=== PATIENT | female | born 1980 | race Caucasian/White ===

== ENCOUNTER 2016-09-20 23:45 | Emergency (ER) | payer OTHER ==
[~2016-09-20] VITALS: Ht 160 cm; Wt 97.5 kg
[~2016-09-20 23:45] MED LIST: DOCUSATE SODIU100 MG PO; GLUCOPHAGE500 MG; HYDROMORPHONE HC2 MG PO; METFORMIN ER500 MG PO; MILK OF MAGNESI30 ML PO; MOTRIN 800MG T800 MG PO; MOTRIN800 MG PO; MYLICON IN40 MG/0.6 PO; PERCOCET 325 MG1 TA2 PO; SERTRALINE HYD100 MG PO
--- NOTE | 2016-09-21 00:14 | ED GI/GU/ABDOMINAL COMPLAINT ---
History of Present Illness General Chief Complaint: Abdominal Pain/Flank Pain Stated Complaint: LT FLANK PAIN X'S FEW DAY'S PER PT Source: patient Exam Limitations: no limitations Allergies Coded Allergies: penfluridol (Intermediate, RASH 09/21/16) Reconcile Medications No Known Home Medications Triage Note: TRIAGE: PATIENT REPORTS +L SIDE AND L FLANK PAIN, DENIES URINARY DIFFICULTIES. DENIES N/V/D. PATIENT INCREASED W/ LAYING ON L SIDE AND W/ PALPATION. PATIENT REPORTS ONSET FEW DAYS AGO, INCREASED AND MORE CONSTANT TONIGHT; DULL ACHING 11/20. Triage Nurses Notes Reviewed? yes ? N Is pt currently ? No HPI: This patient is a 36 year old female with a past medical history including diabetes who presented to the emergency department today for evaluation of left side pain for a few weeks. She reported that about 1 weeks ago she went to her primary care physician who did a urine sample which was normal. The pain increased over the last day. It is located in her left side, is nonradiating, dull, and a 7 out of 10. No palliative factors. Palpation of the are makes it worse. No fevers, chills, chest pain, difficulty breathing, nausea, vomiting, diarrhea, constipation, urinary burning, urgency frequency, or blood in the urine. (PABLO GUTIERRES,TEJAL) Vital Signs & Intake/Output Vital Signs & Intake/Output Vital Signs Date Time Temp Pulse Resp B/P B/P Pulse O2 O2 Flow FiO2 Mean Ox Delivery Rate 09/21 0244 98 Room Air 09/21 0243 98.6 82 18 158/86 98 Room Air 09/20 2357 97.1 95 18 163/91 98 Room Air ED Intake and Output 09/21 0000 09/20 1200 Intake Total Output Total Balance Patient 215 lb Weight Weight Reported by Patient Measurement Method Past History Travel History Traveled to [place] past 21 day No Medical History Any Pertinent Medical History? see below for history Neurological: NONE EENT: NONE Cardiovascular: PALPATATIONS Respiratory: NONE Gastrointestinal: NONE Hepatic: NONE Renal: NONE Musculoskeletal: NONE Psychiatric: NONE Endocrine: diabetes Blood Disorders: NONE Cancer(s): NONE CERTIFIED FRAUD EXAMINER/Reproductive: endometriosis, SOLID MASS ON OVERY 3 spontaneous vaginal deliveries History of MRSA: No History of VRE: No History of CDIFF: No Surgical History Surgical History: OVARIAN Psychosocial History Who do you live with Spouse Services at Home None What is your primary language British Tobacco Use: Never used Family History Hx Contributory? No (TEJAL SHAH PA-C) Review of Systems Review of Systems Constitutional: Reports: no symptoms. EENTM: Reports: no symptoms. Respiratory: Reports: no symptoms. Cardiovascular: Reports: no symptoms. GI: Reports: no symptoms. Genitourinary: Reports: no symptoms. Musculoskeletal: Reports: see HPI. Skin: Reports: no symptoms. Neurological/Psychological: Reports: no symptoms. All Other Systems: Reviewed and Negative (TEJAL SHAH PA-C) Physical Exam Physical Exam Gastrointestinal: normal bowel sounds, soft, non-tender, no organomegaly, no rebound or guarding. no mcburney's point tenderness. negative muphy's sign. negative rovsing sign. nondistended. no masses or hernias appreciated Comments: General: Well-developed, well-nourished person in no acute distress HEENT: Head normocephalic, moist mucous membranes Neck: Supple Back: Normal gait. NO midline tenderness. No CVA tenderness Respiatory: NO respiratory distress. Speaking in full sentences Neuro: A&Ox3. Cranial nerves grossy intact Psych: Normal mood and affect Core Measures ACS in differential dx? Yes Severe Sepsis Present: No Septic Shock Present: No (TEJAL SHAH PA-C) Progress Differential Diagnosis: AAA, AMI, appendicitis, biliary colic, bowel obstruction , colon cancer, cholecystitis, diverticulitis, ectopic , endometritis, gastritis, hepatitis, ischemic bowel, inflamm bowel dis, intrauterine , kidney stone, ovarian cyst, ovarian torsion, pancreatitis, PID/cervicitis, PUD/ GERD, perforated viscous, threatened AB, UTI/pyelo, muscle strain Radiology Impression: abd/pelvc ct.... hysterectomy noted.... full report below. Initial ED EKG: none Hand-Off Endorsed To: IRMA BECKETT,RAVINDER Reese Endorsed Time: 99 Pending: CT, labs (TEJAL SHAH PA-C) Plan of Care: Orders Procedure Date/time Status URINE 09/21 5 Complete URINALYSIS 09/21 5 Complete LIPASE 09/21 5 Complete HIGH SENSITIVITY CRP 09/21 5 Complete DIRECT BILIRUBIN 09/21 5 Complete COMPREHENSIVE METABOLIC PANEL 09/21 5 Complete CBC WITHOUT DIFFERENTIAL 09/21 5 Complete AMYLASE 05/11 0006 Complete Laboratory Tests 09/21/16 0020: Urine Color STRAW, Urine Clarity CLEAR, Urine pH 6.0, Ur Specific [place] 1.015, Urine Protein NEG, Urine Ketones NEG, Urine Nitrite NEG, Urine Bilirubin NEG, Urine Urobilinogen 0.2, Ur Leukocyte Esterase NEG, Ur Microscopic SEDIMENT EXAMINED, Urine RBC RARE, Ur Epithelial Cells MOD H, Urine Bacteria RARE H, Urine Hemoglobin TRACE-LYSED, Urine Glucose NEG, Urine Test NEGATIVE 09/21/16 0018: Anion Gap 13, Estimated GFR > 60, BUN/Creatinine Ratio 26.0 H, Glucose 118 H, Calcium 9.4, Total Bilirubin 0.4, Direct Bilirubin 0.3, AST 22, ALT 37, Alkaline Phosphatase 60, C-React Prot High Sens 8.9 H, Total Protein 7.5, Albumin 4.5, Globulin 3.0, Albumin/Globulin Ratio 1.5, Amylase 62, Lipase 129, CBC w Diff NO MAN DIFF REQ, RBC 4.28, MCV 82.2, MCH 27.9, RDW 13.2, MPV 7.9, Gran % 57.8, Lymphocytes % 35.4, Monocytes % 4.7, Eosinophils % 1.5, Basophils % 0.6, Absolute Granulocytes 5.3, Absolute Lymphocytes 3.2, Absolute Monocytes 0.4, Absolute Eosinophils 0.1, Absolute Basophils 0.1, PUBS MCHC 34.0 Diagnostic Imaging: Viewed by Me: CT Scan. Discussed w/RAD: CT Scan. Radiology Impression: abd/pelvc ct.... hysterectomy noted.... full report below. Comments: PATIENT: NIXON FORMAN PRESENT AGE: 36 PATIENT ACCOUNT NO: [id number] : 79 LOCATION: [facility] ORDERING PHYSICIAN: TEJAL SHAH PA-C SERVICE DATE: 09/21/16 EXAM TYPE: CAT - CT ABD & PELVIS W/O IV CONTRAS EXAMINATION: CT ABDOMEN AND PELVIS WITHOUT CONTRAST CLINICAL INFORMATION: Left-sided pain. COMPARISON: None TECHNIQUE: Multidetector volumetric imaging was performed from the superior aspect of the liver through the pubic symphysis. Sagittal and coronal reformatted images were obtained on the technologist's workstation. DLP: 465 mGy-cm FINDINGS: LUNG BASES: The visualized lung bases are unremarkable. LIVER, GALLBLADDER, AND BILIARY TREE: The liver is normal in size, shape, and attenuation. No focal hepatic lesion or biliary ductal dilatation is present. Cholecystectomy. PANCREAS: Unremarkable. SPLEEN: Unremarkable. ADRENAL GLANDS: Unremarkable. KIDNEYS AND URETERS: The kidneys are normal in size, shape, and attenuation. No hydronephrosis, hydroureter, or calculi seen. No perinephric stranding. BLADDER: Unremarkable. GASTROINTESTINAL TRACT: The stomach and small bowel are unremarkable. No dilated loops of bowel or evidence of obstruction. Normal appendix. No colonic wall thickening or inflammatory change. No free air or free fluid. ABDOMINAL WALL: No significant hernia is appreciated. LYMPH NODES: Normal. VASCULAR: Unremarkable. PELVIC VISCERA: There is a heterogeneous appearing mass in the region of the right adnexa. This likely represents a heterogeneous adnexal lesion, measuring 6.3 x 5.5 cm. The uterus is not seen and likely absent. No left adnexal mass. Alternatively, if the uterus has not been removed, this could be a heterogeneous uterus. OSSEOUS STRUCTURES: Unremarkable. IMPRESSION: 1. Heterogeneous lesion in the right adnexal region, likely of ovarian origin. Correlate for history of hysterectomy, as the uterus is otherwise not seen and if not previously removed, this could be a uterine process. No left adnexal mass. Regardless, this should be further evaluated. Ultrasound may be helpful for further delineation. 2. No hydronephrosis or nephrolithiasis. No acute inflammatory changes. DICTATED BY: SORAYA MAYS MD DATE/TIME DICTATED:09/21/16221 SUPERVISOR DRY CLEANING:SACHI DATE/TIME TRANSCRIBED:09/21/16221 CONFIDENTIAL, DO NOT COPY WITHOUT APPROPRIATE AUTHORIZATION. <Electronically signed in Other Vendor System> SIGNED BY: SORAYA MAYS MD 09/21 0231 (IRMA BECKETT,RAVINDER Reese) Departure Departure Disposition: HOME OR SELF CARE Condition: Stable Referrals: GAYLE BECKETT,CHONG Ang (PCP/Family) Additional Instructions: please follow-up with your primary care physician. over the counter tylenol or ibuprofen for pain and inflammation. return for any worsening symptoms or concerns. Departure Forms: Customer Survey General Discharge Information Prescriptions: Current Visit Scripts No Known Home Medications (PABLO GUTIERRES,TEJAL) Departure Clinical Impression Primary Impression: Muscle strain Secondary Impressions: Abdominal pain PA/MACHINIST Co-Sign Statement Statement: ED Attending supervision documentation- x[] I saw and evaluated the patient. I have also reviewed all the pertinent lab results and diagnostic results. I agree with the findings and the plan of care as documented in the PA's/MACHINIST's documentation. to my evaluation, mild left sided abdominal tenderness to palpation... no rebound. no guarding... ct scan abd/pelvis reveals unusual right ovary. Pt is aware of this from prior studies... pt referred to senior windows engineer for follow up. she is otherwise well. [] I have reviewed the ED Record and agree with the PA's/MACHINIST's documentation. [] Additions or exceptions (if any) to the PAs/MACHINIST's note and plan are summarized below: [] (IRMA BECKETT,RAVINDER Reese)
[2016-09-21 00:24] LABS: ABSOLUTE BASOPHIL COUNT 0.1 /CUMM (0.0-0.2); ABSOLUTE EOSINOPHIL COUNT 0.1 /CUMM (0.0-0.7); ABSOLUTE GRANULOCYTE CT 5.3 /CUMM (1.4-6.5); ABSOLUTE LYMPH COUNT 3.2 /CUMM (1.2-3.4); ABSOLUTE MONOCYTE COUNT 0.4 /CUMM (0.10-0.60); BASOPHIL % 0.6 % (0.0-2.0); EOSINOPHIL % 1.5 % (0-5); GRANULOCYTE % 57.8 % (42.2-75.2); HEMATOCRIT 35.2 % (37-47); MEAN CORPUSCULAR HGB 27.9 PG (27.0-31.0); MEAN CORPUSCULAR VOLUME 82.2 FL (81.0-99.0); MEAN PLATELET VOLUME 7.9 FL (7.4-10.4); PLATELET COUNT 302 /CUMM (130-400); RBC DISTRIBUTION WIDTH 13.2 % (11.5-14.5); RED BLOOD CELL CT 4.28 /CUMM (4.20-5.40); WHITE BLOOD CELL COUNT 9.1 /CUMM (4.8-10.8)
--- NOTE | 2016-09-21 02:31 | CT SCAN REPORT ---
EXAMINATION: CT ABDOMEN AND PELVIS WITHOUT CONTRAST CLINICAL INFORMATION: Left-sided pain. COMPARISON: None TECHNIQUE: Multidetector volumetric imaging was performed from the superior aspect of the liver through the pubic symphysis. Sagittal and coronal reformatted images were obtained on the technologist's workstation. DLP: 465 mGy-cm FINDINGS: LUNG BASES: The visualized lung bases are unremarkable. LIVER, GALLBLADDER, AND BILIARY TREE: The liver is normal in size, shape, and attenuation. No focal hepatic lesion or biliary ductal dilatation is present. Cholecystectomy. PANCREAS: Unremarkable. SPLEEN: Unremarkable. ADRENAL GLANDS: Unremarkable. KIDNEYS AND URETERS: The kidneys are normal in size, shape, and attenuation. No hydronephrosis, hydroureter, or calculi seen. No perinephric stranding. BLADDER: Unremarkable. GASTROINTESTINAL TRACT: The stomach and small bowel are unremarkable. No dilated loops of bowel or evidence of obstruction. Normal appendix. No colonic wall thickening or inflammatory change. No free air or free fluid. ABDOMINAL WALL: No significant hernia is appreciated. LYMPH NODES: Normal. VASCULAR: Unremarkable. PELVIC VISCERA: There is a heterogeneous appearing mass in the region of the right adnexa. This likely represents a heterogeneous adnexal lesion, measuring 6.3 x 5.5 cm. The uterus is not seen and likely absent. No left adnexal mass. Alternatively, if the uterus has not been removed, this could be a heterogeneous uterus. OSSEOUS STRUCTURES: Unremarkable. IMPRESSION: 1. Heterogeneous lesion in the right adnexal region, likely of ovarian origin. Correlate for history of hysterectomy, as the uterus is otherwise not seen and if not previously removed, this could be a uterine process. No left adnexal mass. Regardless, this should be further evaluated. Ultrasound may be helpful for further delineation. 2. No hydronephrosis or nephrolithiasis. No acute inflammatory changes.
[2016-09-21 02:43] VITALS: BP 158/86
== END 2016-09-21 02:44 ==
LOC: ERH 23:45
PROVIDERS: Physician Assistant
DX: S39.011A Strain of muscle, fascia and tendon of abdomen, initial encounter (principal)
CPT/HCPCS: 74176; 81001; 81025; 96372; J1885